=== PATIENT | male | born 1975 | race Caucasian/White ===

== ENCOUNTER 2017-09-13 20:05 | Emergency (ER) | payer OTHER ==
[~2017-09-13] VITALS: Ht 182.9 cm; Wt 76.4 kg
[~2017-09-13 20:05] MED LIST: IBUP800T23 PO
[2017-09-13 20:13] VITALS: BP 128/79; PULSE 70; RESP 14; TEMP 98.2; O2SAT 98
[2017-09-13] MEDS ORDERED: MEDR4PAK PO (20:42)
[2017-09-13] MEDS ORDERED: PERM5CRE TOPICAL (20:42)
[2017-09-13] MEDS ORDERED: PRED20 PO (20:42)
--- NOTE | 2017-09-13 20:43 | PD ---
HPI . Allergic/adverse reaction Chief Complaint: Allergic/Adverse Reaction Time Seen by Provider: 20:21 Travel History International Travel<30 days: No Contact w/Intl Traveler<30days: No Traveled to known affect area: No History of Present Illness HPI 42-year-old male withpast medical history presents with having disseminated rash over entire body surface area that is itchy, pruritic, has been existing for about a week to week and half. Patient changed laundry detergent approximately 2 weeks ago. Patient denies fever, chills, sweats, stiff neck, visual changes. Denies ingestion of any antibiotics or any medicines. No new foods or idiosyncratic food intake as per patient. No sign of any travel history. No exposure to new lotions or insecticides. Denies shortness of breath, oral lesions, throat swelling, voice change PFSH Past Medical History Narrative Medical No significant past medical history Medical History: Denies Significant Hx Diminished Hearing: No Immunizations Current: Yes Tetanus Vaccination: Unknown Influenza Vaccination: No Past Surgical History Surgical History: No Previous Surgery Social History Alcohol Use: Yes (OCC) Tobacco Use: No Substance Use: No Allergies-Medications (Allergen,Severity, Reaction): Coded Allergies: No Known Allergies (Unverified Adverse Reaction, Unknown, 09/13/17) Reported Meds & Prescriptions Reported Meds & Active Scripts Active No Active Prescriptions or Reported Medications Narrative Medication Allergies and medications reviewed Review of Systems Except as stated in HPI: all other systems reviewed are Neg General / Constitutional: No: Fever, Chills Eyes: No: Visual changes HENT: No: Headaches Cardiovascular: No: Chest Pain or Discomfort Respiratory: No: Shortness of Breath Gastrointestinal: No: Abdominal Pain Genitourinary: No: Dysuria Musculoskeletal: No: Pain Skin: Positive Rash, Positive Itching Neurologic: No: Weakness Psychiatric: No: Depression Endocrine: No: Polydipsia Hematologic/Lymphatic: No: Easy Bruising Physical Exam Narrative GENERAL: Awake alert oriented 3 no acute distress SKIN: Warm and dry. Disseminated rash that is pinpoint slightly palpable in geographic regions and sometimes linear. Confluent over hands aspects of left upper arm and chest. Sparing head and neck mostly. Blanching, erythematous, nonvesicular HEAD: Atraumatic. Normocephalic. EYES: Pupils equal and round. No scleral icterus. No injection or drainage. ENT: No nasal bleeding or discharge. Mucous membranes pink and moist. No oral lesions NECK: Trachea midline. No JVD. Supple nontender full range of motion no stridor CARDIOVASCULAR: Regular rate and rhythm. S1-S2 no murmurs gallop RESPIRATORY: No accessory muscle use. Clear to auscultation. Breath sounds equal bilaterally. GASTROINTESTINAL: Abdomen soft, non-tender, nondistended. Hepatic and splenic margins not palpable. MUSCULOSKELETAL: Extremities without clubbing, cyanosis, or edema. No obvious deformities. NEUROLOGICAL: Awake and alert. No obvious cranial nerve deficits. Motor grossly within normal limits. Five out of 5 muscle strength in the arms and legs. Normal speech. PSYCHIATRIC: Appropriate mood and affect; insight and judgment normal. Data Data Last Documented VS Vital Signs Date Time Temp Pulse Resp B/P (MAP) Pulse Ox O2 Delivery O2 Flow Rate FiO2 09/13/17 20:26 (95) 09/13/17 20:13 98.2 70 14 98 MDM Medical Decision Making Medical Screen Exam Complete: Yes Emergency Medical Condition: Yes Medical Record Reviewed: Yes Differential Diagnosis , Contact dermatitis, scabies Narrative Course Prolonged discussion with patient regarding his possible allergen exposure. Patient's rash presentation could represent either contact dermatitis or scabies. We will treat for both concomitantly. Patient to take permethrin/ Elimite lotion as directed, as well as steroids followed by Medrol Dosepak. Recommended patient follow-up with aco coordinator for recurrence or for rash not treated by the above. Patient is to return promptly for worsening Diagnosis Primary Impression: Rash Patient Instructions: Contact Dermatitis (ED), General Instructions, Scabies ( ED) Additional Instructions: Permethrin/Elimite lotion as directed, as well as steroids followed by Medrol Dosepak. Recommended patient follow-up with aco coordinator for recurrence or for rash not treated by the above. Patient is to return promptly for worsening Scripts Permethrin Topical 5% (Permethrin Topical 5%) 5% Cream 1 APPLIC TOPICAL ONCE for Scabies, #1 TUBE 0 Refills Prov: Michel Mclain MD 09/13/17 Methylprednisolone Dosepak (Medrol Dosepak) 4 Mg Dspk 4 MG PO DIRECTED, #1 DSPK 0 Refills Per Pharmacist direction Prov: Michel Mclain MD 09/13/17 Prednisone (Prednisone) 20 Mg Tab 40 MG PO DAILY, #10 TAB 0 Refills Take 40 mg (2 tablets) daily for 5 days Prov: Michel Mclain MD 09/13/17 Disposition: 01 DISCHARGE HOME Condition: Stable Michel Mclain MD Sep 13, 2017 20:43
== END 2017-09-13 20:54 | disposition home or self-care (01) ==
LOC: PHEFT 20:05
DX: R21 Rash and other nonspecific skin eruption (principal)
CPT/HCPCS: 99283